=== PATIENT | male | born 1980 | race Caucasian/White ===

== ENCOUNTER 2017-04-30 17:14 | Emergency (ER) | payer MEDICAID ==
[2017-04-30] MEDS ORDERED: HALOPERIDOL LACT 5 MG/ML INJ ONE (17:19)
[2017-04-30] MEDS ORDERED: HALOPERIDOL LACT 5 MG/ML INJ IM ONE (17:22)
--- NOTE | 2017-04-30 17:27 | EDPHY ---
H & P Source: Patient Exam Limitations: No limitations - Family History Significant Family History: No pertinent family hx - Social History Alcohol Use: Other Time Seen by Provider: 04/30/17 17:17 HPI/ROS: CHIEF COMPLAINT: Altered mental status HISTORY OF PRESENT ILLNESS: The patient is brought in by paramedics with agitation and altered mental status. The patient reportedly was found screaming at a bus station. The patient was unable to provide any specific history. In reviewing his records it does appear that he was at a psychiatric care facility in March. The patient is screaming and agitated in the emergency department. He is unable to provide additional history. REVIEW OF SYSTEMS: A comprehensive 10 point review of systems is unobtainable secondary to altered mental status (Db Muniz) - Medical/Surgical History PMH: Past medical history: Polysubstance abuse, alcohol abuse, bipolar mood disorder (Db Muniz) - Physical Exam Exam: General Appearance: Combative, disoriented, uncooperative Eyes: Pupils equal and round no pallor or injection ENT, Mouth: Mucous membranes moist Respiratory: There are no retractions, lungs are clear to auscultation Cardiovascular: Regular rate and rhythm Gastrointestinal: Abdomen is soft and nontender, no masses, bowel sounds normal Neurological: Moves all 4 extremities with 5/5 strength, unable to assess cranial nerves Skin: Warm and dry, no rashes Musculoskeletal: Neck is supple nontender Extremities: symmetrical, full range of motion Psychiatric: Agitated, psychotic (Db Muniz) Constitutional: Initial Vital Signs Temperature (C) 37.7 C 04/30/17 17:30 Heart Rate 84 04/30/17 17:30 Respiratory Rate 20 04/30/17 17:30 Blood Pressure 119/90 H 04/30/17 17:30 O2 Sat (%) 96 04/30/17 17:30 O2 Delivery Mode Room Air O2 (L/minute) 2 Allergies/Adverse Reactions: No Known Allergies Allergy (Unverified 04/30/17 17:29) Home Medications: Medication Instructions Recorded Gabapentin 04/30/17 Medical Decision Making ED Course/Re-evaluation: The patient presents to the ED with acute agitated delirium. He does have a history of polysubstance abuse and bipolar mood disorder. The patient was sedated with 10 mg of IM Haldol. The patient's initial primary survey demonstrates no evidence of a traumatic injury. The patient did received adequate chemical sedation with Haldol. We did consult with [facility] who reports the patient has a history of bipolar mood disorder substance abuse and alcoholism. 9:30 p.m.: Patient continues to be sedated. We are waiting a urinalysis. Plan will be to assess the patient to see if there is evidence of a amphetamine type intoxication. Should the patient not be intoxicated and have ongoing confusion and psychosis he should be evaluated by Mental Health. The patient will be turned over to Dr. Dietz at shift change. (Db Muniz) 7:00 a.m.-I assumed care of this patient at shift change. Mental health evaluation pending. 12:30 p.m.-seen by mental health, felt appropriate for CSU placement. 3pm: signed over to Dr. Muniz at shift change. Dispo pending. (Cristina Guthrie) Differential Diagnosis: Differential diagnosis considered includes substance intoxication, psychosis, bipolar mood disorder, postictal state, metabolic derangement, meningitis ( Db Muniz) Other Provider: 3:00 a.m. The patient has gotten up and got to the scene. He has not yet provided a urine. He is still somewhat groggy. We will continue to observe and re-evaluate in the morning. 7:00 a.m. the patient is alert. He appears somewhat agitated. He denies hallucinations but does endorse suicidal ideations. We will continue to hold him and try to obtain urine to get a psychiatric evaluation. Care transferred to Dr. Cristina Guthrie. He tells me that he is homeless. (Rahul Dietz) Care Turn Over: care to Dr. Dietz at 2330. (Matt Hallman) - Data Points Laboratory Results: Laboratory Results 04/30/17 18:05 04/30/17 18:05 05/01/17 08:33 Urine Opiates Screen NEGATIVE (NEGATIVE) Urine Barbiturates NEGATIVE (NEGATIVE) Ur Phencyclidine Scrn NEGATIVE (NEGATIVE) Ur Amphetamine Screen NEGATIVE (NEGATIVE) U Benzodiazepines Scrn NEGATIVE (NEGATIVE) Urine Cocaine Screen NEGATIVE (NEGATIVE) U Marijuana (THC) Screen NEGATIVE (NEGATIVE) Medications Given: Discontinued Medications Haloperidol Lactate (Haldol Injection) 10 mg IM EDNOW ONE Stop: 02/25/18 17:23 Last Admin: 04/30/17 17:34 Dose: 10 mg Departure - Departure Disposition: Other Psych, Not [place] Clinical Impression: Polysubstance abuse, Suicidal ideation Condition: Fair Referrals: Patient,NotPresent [Unknown] - As per Instructions
[2017-04-30 18:16] LABS: PLATELET COUNT 232 10^3/uL (150-400)
[2017-05-01 14:55] VITALS: TEMP 97.9
[2017-05-01 16:57] VITALS: BP 126/71; PULSE 87; RESP 16; O2SAT 96
== END 2017-05-01 17:00 ==
LOC: EDUNIT#
DX: R45.851 Suicidal ideations (principal); F19.10 Other psychoactive substance abuse, uncomplicated
CPT/HCPCS: 80305; G0480; J1630

== ENCOUNTER 2017-05-01 18:14 | Inpatient (IN) | payer MEDICAID, OTHER ==
--- NOTE | 2017-05-01 18:45 | EDPHY ---
H & P Source: Patient Exam Limitations: No limitations - Medical/Surgical History Hx Chronic Respiratory Disease: No Hx Diabetes: No Other PMH: PTSD. Bipolar. ETOH. ADHD. Addiction. Poly substance abuse. - Social History Smoking Status: Unknown if ever smoked Time Seen by Provider: 05/01/17 18:20 HPI/ROS: CHIEF COMPLAINT: Ingestion HISTORY OF PRESENT ILLNESS: The patient presents to the emergency department after an ingestion of Benadryl and Seroquel. The patient had been in the emergency department for the past day and was being discharged voluntarily to a crisis stabilization unit. He was outside waiting for [employer] cab when he reportedly ingested the medications. The patient reports he did this because he is suicidal. The patient denies any alcohol use. He denies any additional recreational drug use. REVIEW OF SYSTEMS: A comprehensive 10 point review of systems is otherwise negative aside from elements mentioned in the history of present illness. (Db Muniz) - Physical Exam Exam: General Appearance: Alert, no distress Eyes: Pupils equal and round no pallor or injection ENT, Mouth: Mucous membranes moist Respiratory: There are no retractions, lungs are clear to auscultation Cardiovascular: Regular rate and rhythm Gastrointestinal: Abdomen is soft and nontender, no masses, bowel sounds normal Neurological: A&O, normal motor function, normal sensory exam, normal cranial nerves Skin: Warm and dry, no rashes Musculoskeletal: Neck is supple nontender Extremities: symmetrical, full range of motion Psychiatric: Patient is oriented X 3, there is no agitation, reports suicidal ideation (Db Muniz) Constitutional: Initial Vital Signs Temperature (C) 36.5 C 05/01/17 18:43 Heart Rate 75 05/01/17 18:43 Respiratory Rate 12 05/01/17 18:43 Blood Pressure 131/82 H 05/01/17 18:43 O2 Sat (%) 96 05/01/17 18:43 O2 Delivery Mode Room Air Allergies/Adverse Reactions: No Known Allergies Allergy (Unverified 04/30/17 17:29) Home Medications: Medication Instructions Recorded Gabapentin [Neurontin 300 MG (*)] 600 mg PO TID 04/30/17 Lidocaine [Lidoderm] 1 each TP DAILY 05/01/17 Baclofen [Baclofen 10 mg (*)] 10 mg PO TID PRN 05/02/17 DULoxetine [Cymbalta 60 MG (*)] 60 mg PO DAILY 05/02/17 Naproxen Sodium [Aleve 220 MG (*)] 220 mg PO BID PRN 05/02/17 Medical Decision Making - Diagnostics EKG Interpretation: EKG: Complete interpretation has been separately recorded in the [facility] archive. Summary impression: Sinus rhythm, rate 70, early repolarization ( Db Muniz) ED Course/Re-evaluation: The patient presents to the ED after he reportedly ingested Seroquel and Benadryl immediately after leaving our emergency department. The patient was placed on an M1 psychiatric hold by the police. The patient arrives and is in no acute distress without respiratory depression. The patient had an EKG which demonstrates no ischemic changes. The patient developed no sedation while in the emergency department and I question whether he truly took the medications he reports to have taken. The patient had multiple examinations by myself. He remains hemodynamically stable in no acute distress. Pending at this time is a urine toxicology. The patient has been medically cleared for psychiatric evaluation. The patient will be turned over to Dr. Barrientos at shift change. (Db Muniz) 0600AM: No acute events overnight. Patient here suicidal ideation. Was originally planned to go to CSU however return to the emergency room with suicidal ideation. Patient still needs mental health evaluation. Patient signed over to Dr. Dyer at 7am shift-change. (Khalif Barrientos) 07:00 I assumed care of this patient at shift change. 08:04 Spoke with mental health accounting teacher. Patient will be placed on M1 hold prior to placement. 13:23 The patient has been accepted at [facility] Al. He will be transferred there. (Phil Dyer) Differential Diagnosis: Differential diagnosis considered includes anticholinergic toxicity, Seroquel overdose, arrhythmia, respiratory depression, schizophrenia, suicidal ideation ( Db Muniz) - Data Points Laboratory Results: Laboratory Results 05/01/17 18:35 05/01/17 18:35 Departure - Departure Disposition: [facility] Clinical Impression: Suicidal ideation Condition: Good Referrals: NONE *PRIMARY CARE P,. [Primary Care Provider] - As per Instructions
[2017-05-01 18:53] LABS: PLATELET COUNT 258 10^3/uL (150-400)
--- NOTE | 2017-05-01 19:21 | CPEKG ---
Heart Rate: 70 RR Interval: 857 P-R Interval: 160 QRSD Interval: 98 QT Interval: 420 QTC Interval: 454 P [place]: 72 QRS [place]: 87 T Wave [place]: 63 EKG Severity - NORMAL ECG - EKG Impression: SINUS RHYTHM EKG Impression: ST ELEV, PROBABLE NORMAL EARLY REPOL PATTERN Electronically Signed By: Db Muniz 02-May-2017 00:13:24
[2017-05-02] MEDS ORDERED: MAG HYDROX/AL HYDROX/SIMETH 30 ML UDCUP PO PRN (15:49)
[2017-05-02] MEDS ORDERED: MAGNESIUM HYDROXIDE 30 ML UDCUP PO PRN (15:49)
[2017-05-02] MEDS ORDERED: OLANZapine DISINTEGR 10 MG TAB PO PRN (15:49)
[2017-05-02] MEDS ORDERED: ACETAMINOPHEN 325 MG TAB PO PRN (15:49)
[2017-05-02] MEDS: NICOTINE POLACRILEX 2 MG GUM B PRN ×2 (16:08→17:38)
[2017-05-02] MEDS: GABAPENTIN 300 MG CAP PO SCH ×2 (16:10→20:02)
[2017-05-02] MEDS: LORazepam 0.5 MG TAB PO PRN (16:15)
--- NOTE | 2017-05-02 17:15 | BCON ---
[f rep st] BEHAVIORAL HEALTH CONSULTATION INTERNAL MEDICINE CONSULTATION DATE OF CONSULTATION: 05/02/2017 REFERRING PHYSICIAN: Michael Al MD REASON FOR REFERRAL: Medical clearance for inpatient behavioral health stay. HISTORY OF PRESENT ILLNESS: This patient was seen in the emergency department initially on 04/30/2017, with an altered mental status. He had been found screaming at a bus station. At that time, he had an evaluation which was not consistent with metabolic derangement or intracranial disease and he was discharged. However, he returned on the same day that he was discharged from the emergency department, complaining of suicidal ideation and reporting a suicide attempt with quetiapine and diphenhydramine. He, however, was not sedated and had no EKG changes, but with suicide ideation, he was evaluated by the mental health team and admitted for further psychiatric care. He currently has no acute medical complaints. PAST MEDICAL HISTORY: 1. Mental health issues with diagnosis of bipolar disorder. 2. Polysubstance abuse. 3. Chronic back pain. 4. L4-L5 disk herniation. PAST SURGICAL HISTORY: He has had a diskectomy at the L4-L5 level. MEDICATIONS: 1. Naproxen 225 mg p.o. twice daily p.r.n. 2. Gabapentin 600 mg p.o. 3 times daily. 3. Duloxetine 60 mg p.o. daily. 4. Baclofen 10 mg p.o. 3 times daily p.r.n. 5. Lidocaine patch, 1 each daily. ALLERGIES: There are no known drug allergies. SOCIAL HISTORY: He is a tobacco smoker. He reports that he has been sober from alcohol for 8 months. However, his urine tox screen was positive for ethyl alcohol. 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 He currently is homeless and estranged from his local family. FAMILY HISTORY: His father has throat cancer. Otherwise in his family, there is alcoholism and mental health issues. REVIEW OF SYSTEMS: He reports a 30-pound weight loss in several months. He has back pain and reports he has a chronic pinched nerve in the sacrum. He also reports that there is a compression fracture in his spine and that his surgeon is considering a kyphoplasty for him. He has a cough which is occasionally productive. He denies dyspnea. He denies nausea, vomiting, constipation, or diarrhea. He has a good appetite but has been losing weight. His review of systems referable to the thyroid other than weight loss is unremarkable. He does not feel warm, he does not feel sweaty. He does not have a tremor. He does not have hyper defecation. He denies any urinary symptoms. Otherwise, a 10-point review of systems is negative. PHYSICAL EXAM: VITAL SIGNS: Blood pressure is 110/66, heart rate is 98, respiratory rate is 16, oxygen saturation is 95% on room air, temperature is 36.9 degrees centigrade. His weight is 72.6 kg for a body mass index of 22.3. GENERAL: This is a well-nourished, well-developed man, appears his chronologic age, cooperative and in no acute distress. HEENT: Extraocular movements are intact. Pupils are equal, round, reactive to light. Mucous membranes are moist. Dentition is in good condition. He has an uncrowded airway, Mallampati class 1. NECK: Supple with no thyromegaly and no lymphadenopathy. HEART: There is a regular rate and rhythm with no murmurs, rubs, or gallops. LUNGS: Clear to auscultation bilaterally. ABDOMEN: Soft, tender in the right upper quadrant, nondistended, with normoactive bowel sounds. EXTREMITIES: There is no cyanosis, clubbing, or edema. Radial and dorsalis pedis pulses are 2+ bilaterally. NEUROLOGIC: He is alert and oriented x3. Cranial nerves 2-12 are grossly intact. There is no focal weakness. Sensation is intact to light touch. Gait is within normal limits. LABORATORY STUDIES: From the emergency department, CBC was normal. Serum chemistry revealed normal renal function and electrolytes. He had an elevated total bilirubin at 1.7, which was predominantly unconjugated at 1.3 with the upper limit of normal being 1.1. He had elevated hepatic transaminases with an AST of 91 and an ALT of 110. He had a mildly elevated lipase at 316. He has other recent laboratory draws. On 04/30, he had an elevated sodium and anion gap. There was an elevation of AST and ALT, but not as high; lipase was normal at 186. Toxicology screen in the serum was positive for ethyl alcohol at 46 mg/ dL and in the urine was negative for any substances of abuse. A rheumatoid factor and MANNIE were drawn on 04/05/2017, and both were negative. On 03/30/2017 , he had a lipid panel done which showed a normal cholesterol, an elevated LDL at 113 and an elevated HDL at 68. ASSESSMENT/RECOMMENDATIONS: 1. Mental health issues, pending further evaluation and management per Psychiatry and the mental health team. 2. Weight loss of unclear etiology. I have ordered a TSH for the morning. Given his history of methamphetamine abuse, though he denies intravenous drug abuse, I will also order human immunodeficiency virus testing. 3. Tobacco dependence. He was encouraged to quit smoking. 4. Hyperbilirubinemia and hepatic transaminitis. I will repeat liver function tests in the morning and also add a lipase. Additionally, I will order hepatitis screening. With his right upper quadrant abdominal pain, it is somewhat suspicious for a cholestatic picture which might be due to a gallstone. I see no medical contraindication to this patient's continued stay on the inpatient behavioral health unit or to any psychiatric medications or procedures. Thank you very much for including me in the care of this patient. Please do not hesitate to contact me or the hospitalist service should there be need for further medical evaluation. /[id number]/MODL MTDD
[2017-05-03] MEDS: NICOTINE POLACRILEX 2 MG GUM B PRN ×3 (06:35→11:33)
[2017-05-03] MEDS: LORazepam 0.5 MG TAB PO PRN ×3 (07:07→19:18)
[2017-05-03] MEDS: GABAPENTIN 300 MG CAP PO SCH (08:33)
[2017-05-03] MEDS ORDERED: NON-FORMULARY NEW DRUG (Lidocaine [Lidoderm] 1 EACH) TP SCH (09:00)
[2017-05-03] MEDS ORDERED: DULoxetine 60 MG CAP PO SCH (09:00)
[2017-05-03 09:11] LABS: PLATELET COUNT 218 10^3/uL (150-400)
[2017-05-03] MEDS: LIDOCAINE 4%/MENTHOL 1% PATCH TD SCH (10:14)
[2017-05-03] MEDS: NICOTINE 14 MG/24 HR PATCH TD SCH (12:55)
[2017-05-03] MEDS: ESCITALOPRAM OXALATE 10 MG TAB PO SCH (12:55)
[2017-05-03 14:09] LABS: HEPATITIS B SURFACE ANTIGEN NEGATIVE (NEGATIVE)
[2017-05-03 14:15] LABS: HEPATITIS A ANTIBODY IGM (BCH) NEGATIVE (NEGATIVE); HEPATITIS B CORE AB IGM NEGATIVE (NEGATIVE)
[2017-05-03 14:26] LABS: HEPATITIS C ANTIBODY TOTAL REACTIVE (NEGATIVE); HIV TYPE 1 AND 2 NEGATIVE (NEGATIVE)
[2017-05-03] MEDS: NAPROXEN SODIUM 220 MG TAB PO PRN (15:14)
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
[2017-05-03] MEDS: GABAPENTIN 400 MG CAP PO SCH ×2 (17:11→19:17)
[2017-05-03] MEDS: MELATONIN 3 MG TAB PO PRN (19:21)
[2017-05-03] MEDS: PATCH REMOVAL 1 EA PATCH TD SCH ×2 (19:25→19:26)
--- NOTE | 2017-05-03 20:53 | SOAPPROG ---
SOAP Progress Note Assessment/Plan: Assessment: * Hepatitis C antibody positive. Advise referral to Infectious Disease clinic after discharge regarding treatment options. * LFTs normalizing and no elevation of alkaline phosphatase or lipase: not c/w cholestasis, cholelithiasis or pancreatitis. TSH normal. * No metabolic or infectious etiology of reported weight loss. * Observe for normal food intake. * Follow-up with primary care. 05/03/17 20:51 Subjective: Labs reviewed. Objective: Vital Signs Temp Pulse Resp BP Pulse Ox 33.1 C L 76 16 108/66 94 05/03/17 06:00 05/03/17 06:00 05/03/17 06:00 05/03/17 06:00 05/03/17 06:00 Laboratory Results 05/03/17 06:30 05/03/17 06:30 ICD10 Worksheet Patient Problems: Problems Problem Status Onset Suicidal ideation Acute
[2017-05-04] MEDS: LORazepam 0.5 MG TAB PO PRN ×4 (01:40→20:57)
[2017-05-04 06:38] VITALS: TEMP 97.4; O2SAT 96
[2017-05-04] MEDS: NICOTINE 14 MG/24 HR PATCH TD SCH (07:01)
[2017-05-04] MEDS: GABAPENTIN 400 MG CAP PO SCH ×3 (08:12→20:57)
[2017-05-04] MEDS: ESCITALOPRAM OXALATE 10 MG TAB PO SCH (08:13)
[2017-05-04] MEDS: LIDOCAINE 4%/MENTHOL 1% PATCH TD SCH (08:14)
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
[2017-05-04] MEDS: NAPROXEN SODIUM 220 MG TAB PO PRN (16:04)
[2017-05-04] MEDS: NICOTINE POLACRILEX 2 MG GUM B PRN ×2 (16:05→17:36)
[2017-05-04] MEDS: MELATONIN 3 MG TAB PO PRN (20:58)
[2017-05-05] MEDS: NICOTINE POLACRILEX 2 MG GUM B PRN ×2 (05:22→10:36)
[2017-05-05] MEDS: LORazepam 0.5 MG TAB PO PRN ×2 (05:24→11:51)
[2017-05-05 07:05] VITALS: BP 119/77; PULSE 80; RESP 16
[2017-05-05] MEDS: NICOTINE 14 MG/24 HR PATCH TD SCH (08:04)
[2017-05-05] MEDS: GABAPENTIN 400 MG CAP PO SCH (08:05)
[2017-05-05] MEDS: ESCITALOPRAM OXALATE 10 MG TAB PO SCH (08:05)
[2017-05-05] MEDS: LIDOCAINE 4%/MENTHOL 1% PATCH TD SCH (08:05)
[2017-05-05] MEDS: NAPROXEN SODIUM 220 MG TAB PO PRN (10:36)
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
== END 2017-05-05 12:10 | disposition home or self-care (01) | DRG 885 ==
LOC: EDUNIT# → BBEH 05-02 14:15
PROVIDERS: ADMIT Psychiatry & Neurology Psychiatry; ATTEND Psychiatry & Neurology Psychiatry
DX: F31.32 Bipolar disorder, current episode depressed, moderate (principal); F43.10 Post-traumatic stress disorder, unspecified; R63.4 Abnormal weight loss; F17.210 Nicotine dependence, cigarettes, uncomplicated; B19.20 Unspecified viral hepatitis C without hepatic coma; Z72.89 Other problems related to lifestyle; F15.90 Other stimulant use, unspecified, uncomplicated; F12.10 Cannabis abuse, uncomplicated; M54.5 Low back pain; Z59.0 Homelessness
CPT/HCPCS: G0472

== ENCOUNTER 2017-06-26 01:32 | Emergency (ER) | payer MEDICAID ==
[2017-06-26] MEDS ORDERED: IBUPROFEN 800 MG TAB PO ONE ×2 (01:38→01:51)
--- NOTE | 2017-06-26 01:40 | EDPHY ---
H & P Time Seen by Provider: 06/26/17 01:36 HPI/ROS: HPI CHIEF COMPLAINT: Blisters on feet. Feet Pain. HISTORY OF PRESENT ILLNESS: Patient is a 36-year-old male who presents emergency room from the [facility] with pain in both feet. He is homeless. He has blisters on the bottom of both feet. There is no evidence of infection. There is no evidence of aly nip or frostbite. There is no evidence of necrotizing skin lesion. He has blisters from not bearing out his feet well enough. And prolonged aware of her clothes shoe. I went over care of his feet with him. He understands to air out his feet multiple times a day. Do not keep his feet into a closed boot. Do not get his feet wet. We provided clean socks. He can be discharged from the emergency room. Past Medical History: Denies significant medical history Past Surgical History: Denies significant surgical history Social History: Homeless, denies daily use drugs alcohol tobacco. Family History: Noncontributory ROS REVIEW OF SYSTEMS: A comprehensive 10 point review of systems is otherwise negative aside from elements mentioned in the history of present illness. Exam Constitutional appears well nontoxic no acute distress triage nursing summary reviewed, vital signs reviewed, awake/alert. Eyes normal conjunctivae and sclera, EOMI, PERRLA. HENT normal inspection, atraumatic, moist mucus membranes, no epistaxis, neck supple/ no meningismus, no raccoon eyes. Respiratory clear to auscultation bilaterally, normal breath sounds, no respiratory distress, no wheezing. Cardiovascular rate normal, regular rhythm, no murmur, no edema, distal pulses normal. Gastrointestinal soft, non-tender, no rebound, no guarding, normal bowel sounds, no distension, no pulsatile mass. Genitourinary no CVA tenderness. Musculoskeletal no midline vertebral tenderness, full range of motion, no calf swelling, no tenderness of extremities, no meningismus, good pulses, neurovascularly intact. Skin multiple blisters on the soles of both feet. No evidence of infection. No cellulitis or abscess. No evidence of aly nip or frostbite. No evidence of abscess. No evidence of significant trench foot.. Neurologic awake, alert and oriented x 3, AAOx3, moves all 4 extremities equally, motor intact, sensory intact, CN II-XII intact, normal cerebellar, normal vision, normal speech. Psychiatric normal mood/affect. Heme/Lymph/Immune no lymphadenopathy. Differential Diagnosis: Includes but is not limited to in a particular order foot pain from bilateral feet blisters. Poor feet hygiene. Medical Decision Making: Plan for this patient warm socks will be applied. Recommend erring out his feet tonight. Return of worsening symptoms he understands. Source: Patient, EMS - Medical/Surgical History Hx Chronic Respiratory Disease: No Hx Diabetes: No Other PMH: PTSD. Bipolar. ETOH. ADHD. Addiction. Poly substance abuse. - Social History Smoking Status: Heavy smoker Allergies/Adverse Reactions: No Known Allergies Allergy (Unverified 04/30/17 17:29) Home Medications: Medication Instructions Recorded Lidocaine [Lidoderm] 1 each TP DAILY 05/01/17 Naproxen Sodium [Aleve 220 MG (*)] 220 mg PO BID PRN 05/02/17 Escitalopram Oxalate [Lexapro 10 10 mg PO DAILY tab 05/05/17 MG] Gabapentin [Neurontin 400 MG (*)] 800 mg PO TID cap 05/05/17 Melatonin [Melatonin 3 MG (*)] 3 - 6 mg PO HS PRN tab 05/05/17 Departure - Departure Disposition: Home, Routine, Self-Care Clinical Impression: Blister Condition: Good Instructions: Blister (ED) Additional Instructions: 1. Keep her feet clean, dry. Air them out. 2. Return to the emergency room if you have worsening symptoms questions or concerns. Referrals: Patient,NotPresent [Primary Care Provider] - As per Instructions
[2017-06-26 01:44] VITALS: BP 111/72
== END 2017-06-26 01:53 | disposition home or self-care (01) ==
LOC: EDUNIT#
DX: S90.821A Blister (nonthermal), right foot, initial encounter (principal); S90.822A Blister (nonthermal), left foot, initial encounter; F17.200 Nicotine dependence, unspecified, uncomplicated; X58.XXXA Exposure to other specified factors, initial encounter; Y92.89 Other specified places as the place of occurrence of the external cause

== ENCOUNTER 2017-08-03 01:30 | Emergency (ER) | payer MEDICAID ==
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
[2017-08-03 02:08] VITALS: BP 121/80
== END 2017-08-03 02:08 ==
LOC: EDBD 01:30 → MERGE 01:30
DX: Z02.89 Encounter for other administrative examinations (principal); F91.8 Other conduct disorders; F17.200 Nicotine dependence, unspecified, uncomplicated

== ENCOUNTER 2017-08-14 00:29 | Emergency (ER) | payer OTHER, MEDICAID ==
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
[2017-08-14] MEDS ORDERED: ACETAMINOPHEN 500 MG TAB PO ONE (00:37)
[2017-08-14 01:28] VITALS: BP 121/74
== END 2017-08-14 01:26 | disposition home or self-care (01) ==
DX: S00.03XA Contusion of scalp, initial encounter (principal); F17.200 Nicotine dependence, unspecified, uncomplicated; Y09 Assault by unspecified means; Y92.149 Unspecified place in prison as the place of occurrence of the external cause

== ENCOUNTER 2017-11-18 21:07 | Emergency (ER) | payer MEDICAID ==
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
[2017-11-18 22:01] LABS: PLATELET COUNT 350 10^3/uL (150-400)
[2017-11-18] MEDS ORDERED: SULFAMETHOX/TMP 800/160 MG 1 TAB PO ONE (23:06)
[2017-11-18] MEDS ORDERED: CEPHALEXIN 500 MG CAP PO ONE (23:06)
[2017-11-19 00:55] VITALS: BP 114/74
== END 2017-11-19 00:55 | disposition home or self-care (01) ==
LOC: EDUNIT#
DX: L03.115 Cellulitis of right lower limb (principal); L03.116 Cellulitis of left lower limb; F15.90 Other stimulant use, unspecified, uncomplicated; F12.90 Cannabis use, unspecified, uncomplicated; F31.9 Bipolar disorder, unspecified; F43.10 Post-traumatic stress disorder, unspecified
CPT/HCPCS: G0480